=== PATIENT | male | born 1980 | race Caucasian/White ===

== ENCOUNTER 2022-05-27 09:24 | Outpatient (REF) | payer OTHER, MEDICAID, SELFPAY ==
[2022-05-27 10:04] LABS: Estimated Average Glucose 97 mg/dL
[2022-05-27 10:19] LABS: Cholesterol 215 mg/dL; HDL Cholesterol 43 mg/dL; LDL Cholesterol Calculated 145 mg/dl; Triglycerides 139 mg/dL
== END 2022-05-27 09:25 | disposition home or self-care (01) ==
LOC: HO.LAB 09:24
PROVIDERS: Visit Provider Registered Nurse
DX: F31.9 Bipolar disorder, unspecified (principal); F44.7 Conversion disorder with mixed symptom presentation; Z79.899 Other long term (current) drug therapy
CPT/HCPCS: 36415; 80061; 83036